=== PATIENT | female | born 2000 | race Caucasian/White ===

== ENCOUNTER 2023-09-25 03:13 | Emergency (ER) | payer MEDICAID, OTHER ==
[~2023-09-25] VITALS: Ht 149.9 cm; Wt 74.0 kg
[2023-09-25 03:25] VITALS: BP 116/71; PULSE 75; RESP 16; TEMP 98.5; O2SAT 98
== END 2023-09-25 09:23 | disposition home or self-care (01) ==
LOC: ER 03:13
DX: M54.50 Low back pain, unspecified (principal)
CPT/HCPCS: 99281